=== PATIENT | female | born 1945 | race Hispanic/Latino ===

== ENCOUNTER → 2024-12-15 | Outpatient (CLI) | payer MEDICARE | END | disposition home or self-care (01) | LOC: SHCH 13:18 | PROVIDERS: ATTEND Student in an Organized Health Care Education/Training Program | DX: I08.0 Rheumatic disorders of both mitral and aortic valves (principal) | CPT/HCPCS: 93306 ==

== ENCOUNTER → 2025-05-17 | Outpatient (CLI) | payer MEDICARE ==
[~2025-05-17] MED LIST: APIX5TAB PO; ASPI-1005 PO; ATOR40TA71 PO; CHOL2000 PO; FAMO20TA8 PO; FOLI0.8T22 PO; HYDR-3421 PO; HYDR50TA37 PO; LISI20TA24 PO; LOSA50TA64 PO; MEMA5TAB16 PO; METO50TA18 PO; QUET25TA36 PO; RIVA3CAP17 PO; SODI650T PO
--- NOTE | 2025-05-17 14:10 | NUR ---
MBSS COMPLETED (OUTPATIENT). No aspiration. Pt presented with deep non-transient penetration during the swallow with mildly thick liquids via tsp with no cough response. RECOMMEND: minced and moist solids, moderately thick liquids, and pills crushed with pureed as tolerated. COMPENSATORY STRATEGIES: 1. sit upright during oral intake 2. small bites/sips 3. slow oral intake 4. NO STRAWS DIAGNOSTIC FINDINGS: Pt presented with mild oropharyngeal dysphagia characterized by decreased oral motor strength; decreased tongue base retraction; decreased hyo-laryngeal elevation/excursion evidenced by prolonged mastication; residue on base of tongue, valleculae and occasionally in pyriform sinuses cleared with extra dry swallows; resulting in deep non-transient penetration during the swallow with mildly thick liquids via tsp with no cough response; no aspiration. NOTE: As per patient/family, dysphagia is a new onset post intubation at [facility] [place] back in December 2024. Pt was intubated and required trach tube and PEG tube placement. Pt was transferred out to [facility] before receiving speech therapy services at [facility] [place]. Pt was recently told by MD to start with pureed solids and liquids. Pt continues with PEG tube in place; however, does not use it for feedings. Pt also noted with slurred speech. 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 NUCLEAR OPERATIONS SPECIALIST reviewed results and recommendations with patient and daughter Jessica. NUCLEAR OPERATIONS SPECIALIST educated patient on risks and consequences of aspiration. Speech therapy warranted at this time to address new onsets of mild oropharyngeal dysphagia. NUCLEAR OPERATIONS SPECIALIST provided patient/family a can of thickener and demonstrated how to reach mildly thick liquids. All questions answered. Addendum: 05/23/[address] JESICA STROUD Amended: Links added.
--- NOTE | 2025-05-18 11:40 | HMCIMG ---
MODIFIED BARIUM SWALLOW W CINE REASON: DYSPHAGIA, FEEDING DIFFICULTIES FINDINGS: Fluoroscopic assistance was provided to the speech pathologist while performing examination. For findings and dietary recommendations, refer to speech pathologist's report. FLUORO TIME: 4.7 minutes IMPRESSION: Modified barium swallow as described.
== END | disposition home or self-care (01) ==
LOC: RAH 13:08
PROVIDERS: ATTEND Internal Medicine Gastroenterology
DX: R13.10 Dysphagia, unspecified (principal); R63.30 Feeding difficulties, unspecified
CPT/HCPCS: 74230; 92611